=== PATIENT | female | born 1970 | race Native Hawaiian/Other Pacific Islander ===

== ENCOUNTER 2022-11-27 13:51 | Emergency (ER) | payer OTHER ==
[~2022-11-27] VITALS: Ht 160 cm; Wt 69.9 kg
[2022-11-27 13:55] VITALS: TEMP 99.1
[2022-11-27 15:06] LABS: PLATELET COUNT 193 K/uL (152-353)
[2022-11-27 15:45] VITALS: BP 118/72
== END 2022-11-27 16:23 | disposition home or self-care (01) ==
LOC: ED 13:51
PROVIDERS: Emergency Medicine Emergency Medical Services
DX: J20.9 Acute bronchitis, unspecified (principal); U07.1 COVID-19; F17.210 Nicotine dependence, cigarettes, uncomplicated
CPT/HCPCS: 36415; 85027; 87040; 87502; 87635; 87651; 94664; 96360; 96365; 96375; 99284; J0696; J2930; U0003

== ENCOUNTER 2022-12-13 12:26 | Outpatient (CLI) | payer OTHER | END 2022-12-13 19:29 | disposition home or self-care (01) | LOC: MRI 12:26 | PROVIDERS: ATTEND Orthopaedic Surgery | DX: M54.59 Other low back pain (principal); M48.061 Spinal stenosis, lumbar region without neurogenic claudication; M51.36 Other intervertebral disc degeneration, lumbar region ==